=== PATIENT | female | born 1955 | race Caucasian/White ===

== ENCOUNTER 2018-02-18 10:09 | Emergency (ER) | payer OTHER ==
[~2018-02-18] VITALS: Ht 157.5 cm; Wt 111.2 kg
[~2018-02-18 10:09] MED LIST: ADVAIR 250/501 DISK IH; ADVAIR 500/501 DISK IH; ALLEGRA60 MG PO; ALPRAZOLAM0.5 MG PO; AMLODIPINE BESYL5 MG PO; ATENOLOL50 MG PO; AZELASTINE HCL6 ML BOTH EYES; AZELASTINE HCL6 ML LEFT EYE; BENTYL10 MG PO; CHLORDIAZEPOXI1 EACH PO; CYANOCOBAL1000 MCG/2 IM; DICYCLOMINE HCL10 MG PO; DRISDOL50000 UNIT PO; ERGOCALCIF50000 UNIT PO; FERROUS SULFAT325 MG PO; FLONASE16 G1 BOTH NARES; LASIX40 MG PO; LEVOTHYROXINE50 MCG PO; LIBRAX, CLI1 CAPSULE PO; MECLIZINE HCL25 MG PO; METRONIDAZOLE500 MG PO; MONTELUKAST SOD10 MG PO; NORCO 5/3251 TABLET PO; PHENADOZ25 MG PR; PREDNISONE2.5 MG PO; PROMETHAZINE HC25 M1 PO; PROVENTIL,2.5 MG/3 M IH; PROVENTIL2.5 MG/3 M IH; SIMVASTATIN20 MG PO; STELARA45 MG/0.1 SC; TIZANIDINE HCL4 M1 PO; TYLENOL WITH C1 EACH PO; VENLAFAXINE HCL75 M3 PO; VENTOLIN HFA18 GM IH; XARELTO15 MG PO; ZEGERID40 MG PO; ZOFRAN4 MG PO
[2018-02-18 10:38] LABS: BASOPHIL (%) 0.6 % (0-1); BASOPHIL COUNT 0.1 K/uL (0-0.1); EOSINOPHIL (%) 2.3 % (0-5); EOSINOPHIL COUNT 0.4 K/uL (0-0.3); HEMATOCRIT 41.2 % (36.0-46.0); IMMATURE GRANULOCYTE (%) 0.8 % (0.0-0.7); LYMPHOCYTE COUNT 4.8 K/uL (1.0-2.8); MCH 27.9 PG (29.0-34.0); MCHC 31.6 G/DL (30.0-36.0); MCV 88.4 FL (83-99); MONOCYTE (%) 7.3 % (3-12); MONOCYTE COUNT 1.2 K/uL (0-0.8); NEUTROPHIL COUNT 10.4 K/uL (1.8-6.4); PLATELET COUNT 406 K/uL (156-360); RBC DIS.WIDTH-CV 13.6 % (11.8-14.6); RBC DIS.WIDTH-SD 43.8 % (39-53); RED BLOOD COUNT 4.66 M/uL (3.80-5.20)
[2018-02-18 10:44] LABS: APPEARANCE SL.HAZY ((CLEAR)); BILIRUBIN NEGATIVE; BLOOD MODERATE; COLOR YELLOW ((YELLOW)); GLUCOSE (STRIP) NEGATIVE; KETONES NEGATIVE; LEUKOCYTES SMALL; NITRITE NEGATIVE; PROTEIN (STRIP) 30; SPECIFIC GRAVITY 1.026 (1.000-1.030)
[2018-02-18 10:47] LABS: CHLORIDE 105 mEq/L (99-109); POTASSIUM 3.5 mEq/L (3.7-5.4); SODIUM 144 mEq/L (136-147)
[2018-02-18 10:48] LABS: GLUCOSE 100 mg/dL (70-99)
[2018-02-18 10:52] LABS: CREATININE 1.1 mg/dL (0.6-1.3); GFR ESTIMATE (CALCULATED) 54 mL/min/
[2018-02-18 10:52] LABS: BACTERIA RARE /HPF; EPITHELIAL CELLS RARE /HPF; HYALINE CASTS 0-5 /LPF; MUCUS TRACE /LPF; RED BLOOD CELLS 0-5 /HPF (0-5); WHITE BLOOD CELLS 0-5 /HPF (0-5)
[2018-02-18 10:53] LABS: UREA NITROGEN (BUN) 21 mg/dL (9-23)
[2018-02-18] MEDS ORDERED: BENTYL20 MG PO (12:38)
[2018-02-18] MEDS ORDERED: FLAGYL500 MG PO (12:38)
[2018-02-18] MEDS ORDERED: CIPRO500 MG PO (12:38)
[2018-02-18 12:57] VITALS: BP 133/71
[2018-02-19] MEDS ORDERED: ADVAIR 500/501 DISK IH (12:24)
[2018-02-19] MEDS ORDERED: ACETAMINOPHEN-1 EAC2 PO (12:25)
[2018-02-19] MEDS ORDERED: ATENOLOL50 MG PO (12:26)
[2018-02-19] MEDS ORDERED: XARELTO20 MG PO (12:27)
[2018-02-19] MEDS ORDERED: LEVOTHYROXINE50 MCG PO (12:27)
[2018-02-19] MEDS ORDERED: CHLORDIAZEPOXI1 EACH PO (12:28)
[2018-02-19] MEDS ORDERED: EFFEXOR XR75 MG PO (12:29)
[2018-02-19] MEDS ORDERED: MONTELUKAST SOD10 MG PO (12:30)
[2018-02-19] MEDS ORDERED: PREDNISONE2.5 MG PO (12:30)
[2018-02-19] MEDS ORDERED: ERGOCALCIF50000 UNIT PO (12:31)
[2018-02-19] MEDS ORDERED: CYANOCOBAL1000 MCG/2 IM (12:36)
== END 2018-02-18 13:03 | disposition home or self-care (01) ==
LOC: EME 10:09
PROVIDERS: Emergency Medicine
DX: K52.9 Noninfective gastroenteritis and colitis, unspecified (principal); M19.90 Unspecified osteoarthritis, unspecified site; Z86.718 Personal history of other venous thrombosis and embolism; M79.7 Fibromyalgia; K58.9 Irritable bowel syndrome, unspecified; K21.9 Gastro-esophageal reflux disease without esophagitis; J45.909 Unspecified asthma, uncomplicated; F32.9 Major depressive disorder, single episode, unspecified; E78.5 Hyperlipidemia, unspecified; E03.9 Hypothyroidism, unspecified; I10 Essential (primary) hypertension; Z96.651 Presence of right artificial knee joint; Z91.041 Radiographic dye allergy status; Z88.6 Allergy status to analgesic agent; Z88.0 Allergy status to penicillin; Z88.5 Allergy status to narcotic agent
CPT/HCPCS: 74177; 80048; 81003; 85025; 99281; 99284; J1200; J2405; J3010

== ENCOUNTER 2018-02-18 17:45 | Inpatient (IN) | payer OTHER ==
[~2018-02-18] VITALS: Ht 157.5 cm; Wt 109.2 kg
[~2018-02-18 17:45] MED LIST changes: +BENTYL20 MG PO; +CIPRO500 MG PO; +FLAGYL500 MG PO
[2018-02-18 19:02] LABS: HEMATOCRIT 40.6 % (36.0-46.0); HEMOGLOBIN 12.9 G/DL (11.9-15.5); MCH 27.6 PG (29.0-34.0); MCHC 31.8 G/DL (30.0-36.0); MCV 86.8 FL (83-99); PLATELET COUNT 386 K/uL (156-360); RBC DIS.WIDTH-CV 13.7 % (11.8-14.6); RED BLOOD COUNT 4.68 M/uL (3.80-5.20); WHITE BLOOD COUNT 21.9 K/uL (4.1-10.2)
[2018-02-18 19:18] LABS: ALBUMIN 4.2 g/dL (3.2-4.8)
[2018-02-18 19:19] LABS: CHLORIDE 106 mEq/L (99-109); POTASSIUM 3.9 mEq/L (3.7-5.4); SODIUM 144 mEq/L (136-147)
[2018-02-18 19:21] LABS: GLUCOSE 122 mg/dL (70-99); TOTAL PROTEIN 7.4 g/dL (6.4-8.3)
[2018-02-18 19:23] LABS: TOTAL BILIRUBIN 0.2 mg/dL (0.0-1.0)
[2018-02-18 19:24] LABS: ALKALINE PHOSPHATASE 120 IU/L (3-129)
[2018-02-18 19:25] LABS: GFR ESTIMATE (CALCULATED) > 59 mL/min/
[2018-02-18 19:26] LABS: AST (GOT) 17 IU/L (2-34); UREA NITROGEN (BUN) 18 mg/dL (9-23)
[2018-02-18 19:27] LABS: ALT (GPT) 24 IU/L (3-49)
[2018-02-19 00:01] LABS: HEMATOCRIT 40.5 % (36.0-46.0); HEMOGLOBIN 12.7 G/DL (11.9-15.5); MCH 27.5 PG (29.0-34.0); MCHC 31.4 G/DL (30.0-36.0); MCV 87.9 FL (83-99); PLATELET COUNT 399 K/uL (156-360); RBC DIS.WIDTH-CV 13.8 % (11.8-14.6); RBC DIS.WIDTH-SD 44.2 % (39-53); RED BLOOD COUNT 4.61 M/uL (3.80-5.20); WHITE BLOOD COUNT 21.4 K/uL (4.1-10.2)
[2018-02-19 02:30] VITALS: BP 169/82
[2018-02-19 06:08] LABS: HEMATOCRIT 39.2 % (36.0-46.0); HEMOGLOBIN 11.9 G/DL (11.9-15.5); MCH 26.6 PG (29.0-34.0); MCHC 30.4 G/DL (30.0-36.0); MCV 87.5 FL (83-99); PLATELET COUNT 362 K/uL (156-360); RBC DIS.WIDTH-CV 13.9 % (11.8-14.6); RBC DIS.WIDTH-SD 44.2 % (39-53); RED BLOOD COUNT 4.48 M/uL (3.80-5.20)
[2018-02-19 06:14] LABS: ALBUMIN 3.6 G/DL (3.2-4.8); ALKALINE PHOSPHATASE 94 IU/L (3-129); ALT (GPT) 18 IU/L (3-49); AST (GOT) 15 IU/L (2-34); CHLORIDE 105 MEQ/L (99-109); GFR ESTIMATE (CALCULATED) > 59 mL/min/; GLUCOSE 109 mg/dL (70-99); SODIUM 140 MEQ/L (136-147); TOTAL BILIRUBIN 0.4 MG/DL (0.0-1.0); TOTAL PROTEIN 6.3 G/DL (6.4-8.3); UREA NITROGEN (BUN) 13 mg/dL (9-23)
[2018-02-19 07:15] VITALS: BP 142/66
[2018-02-19 10:55] VITALS: BP 141/67
[2018-02-19 11:18] LABS: HEMATOCRIT 36.9 % (36.0-46.0); HEMOGLOBIN 11.6 G/DL (11.9-15.5); MCH 27.7 PG (29.0-34.0); MCHC 31.4 G/DL (30.0-36.0); MCV 88.1 FL (83-99); PLATELET COUNT 333 K/uL (156-360); RBC DIS.WIDTH-CV 14.1 % (11.8-14.6); RBC DIS.WIDTH-SD 44.9 % (39-53); RED BLOOD COUNT 4.19 M/uL (3.80-5.20); WHITE BLOOD COUNT 15.3 K/uL (4.1-10.2)
[2018-02-19] MEDS ORDERED: ADVAIR 500/501 DISK IH (12:24)
[2018-02-19] MEDS ORDERED: ACETAMINOPHEN-1 EAC2 PO (12:25)
[2018-02-19] MEDS ORDERED: ATENOLOL50 MG PO (12:26)
[2018-02-19] MEDS ORDERED: XARELTO20 MG PO (12:27)
[2018-02-19] MEDS ORDERED: LEVOTHYROXINE50 MCG PO (12:27)
[2018-02-19] MEDS ORDERED: CHLORDIAZEPOXI1 EACH PO (12:28)
[2018-02-19] MEDS ORDERED: EFFEXOR XR75 MG PO (12:29)
[2018-02-19] MEDS ORDERED: MONTELUKAST SOD10 MG PO (12:30)
[2018-02-19] MEDS ORDERED: PREDNISONE2.5 MG PO (12:30)
[2018-02-19] MEDS ORDERED: ERGOCALCIF50000 UNIT PO (12:31)
[2018-02-19] MEDS ORDERED: CYANOCOBAL1000 MCG/2 IM (12:36)
[2018-02-19 15:30] VITALS: BP 129/65
[2018-02-19 15:35] LABS: INTER. NORMALIZED RATIO 1.3
[2018-02-19 15:38] LABS: PTT 25.8 SEC (25-37)
[2018-02-19 19:26] VITALS: BP 164/83
[2018-02-19 22:06] LABS: HEMATOCRIT 39.6 % (36.0-46.0); HEMOGLOBIN 12.1 G/DL (11.9-15.5); MCV 88.6 FL (83-99)
[2018-02-19 23:33] VITALS: BP 163/74
[2018-02-20 03:47] VITALS: BP 153/70
[2018-02-20 06:12] LABS: HEMATOCRIT 37.8 % (36.0-46.0); HEMOGLOBIN 11.6 G/DL (11.9-15.5); MCH 26.9 PG (29.0-34.0); MCHC 30.7 G/DL (30.0-36.0); MCV 87.5 FL (83-99); PLATELET COUNT 341 K/uL (156-360); RBC DIS.WIDTH-CV 13.7 % (11.8-14.6); RED BLOOD COUNT 4.32 M/uL (3.80-5.20); WHITE BLOOD COUNT 14.5 K/uL (4.1-10.2)
[2018-02-20 08:09] VITALS: BP 143/64
[2018-02-20] MEDS ORDERED: TIZANIDINE HCL2 MG PO (10:57)
[2018-02-20] MEDS ORDERED: DICLOFENAC SODI75 MG PO (10:58)
[2018-02-20] MEDS ORDERED: DOXEPIN HCL10 MG PO (11:01)
[2018-02-20] MEDS ORDERED: FLONASE16 G1 BOTH NARES (11:04)
[2018-02-20] MEDS ORDERED: VENLAFAXINE HCL75 M3 PO (11:05)
[2018-02-20] MEDS ORDERED: AZELASTINE HCL6 ML BOTH EYES (11:07)
[2018-02-20 12:00] VITALS: BP 181/80
[2018-02-20 15:25] VITALS: BP 134/59
[2018-02-20 19:36] LABS: INTER. NORMALIZED RATIO 1.3
[2018-02-20 19:39] LABS: PTT 66.9 SEC (25-37)
[2018-02-20 19:44] VITALS: BP 145/61
[2018-02-20 20:03] LABS: HEMATOCRIT 37.3 % (36.0-46.0); HEMOGLOBIN 11.7 G/DL (11.9-15.5); MCV 88.2 FL (83-99)
[2018-02-21 00:52] VITALS: BP 140/76
[2018-02-21 04:38] VITALS: BP 127/60
[2018-02-21 05:22] LABS: C DIFF TOXIN NEGATIVE (NEGATIVE)
[2018-02-21 06:15] LABS: HEMATOCRIT 34.6 % (36.0-46.0); HEMOGLOBIN 10.7 G/DL (11.9-15.5); MCH 27.5 PG (29.0-34.0); MCHC 30.9 G/DL (30.0-36.0); MCV 88.9 FL (83-99); PLATELET COUNT 318 K/uL (156-360); RBC DIS.WIDTH-SD 45.2 % (39-53); RED BLOOD COUNT 3.89 M/uL (3.80-5.20); WHITE BLOOD COUNT 13.8 K/uL (4.1-10.2)
[2018-02-21 06:38] LABS: CHLORIDE 107 MEQ/L (99-109); GFR ESTIMATE (CALCULATED) > 59 mL/min/; GLUCOSE 93 mg/dL (70-99); POTASSIUM 3.8 MEQ/L (3.7-5.4); SODIUM 141 MEQ/L (136-147); UREA NITROGEN (BUN) 10 mg/dL (9-23)
[2018-02-21 12:09] VITALS: BP 134/56
[2018-02-21 17:03] VITALS: BP 144/60
[2018-02-21 19:50] VITALS: BP 127/60
[2018-02-21 20:04] LABS: HEMATOCRIT 34.5 % (36.0-46.0); HEMOGLOBIN 10.7 G/DL (11.9-15.5); MCV 89.1 FL (83-99)
[2018-02-22 00:07] VITALS: BP 117/56
[2018-02-22 06:50] LABS: HEMATOCRIT 33.5 % (36.0-46.0); HEMOGLOBIN 10.1 G/DL (11.9-15.5); MCH 26.9 PG (29.0-34.0); MCHC 30.1 G/DL (30.0-36.0); MCV 89.3 FL (83-99); PLATELET COUNT 297 K/uL (156-360); RBC DIS.WIDTH-CV 14.1 % (11.8-14.6); RBC DIS.WIDTH-SD 45.6 % (39-53); RED BLOOD COUNT 3.75 M/uL (3.80-5.20); WHITE BLOOD COUNT 9.8 K/uL (4.1-10.2)
[2018-02-22 06:51] VITALS: BP 146/65
[2018-02-22 07:26] LABS: CHLORIDE 111 MEQ/L (99-109); GFR ESTIMATE (CALCULATED) > 59 mL/min/; GLUCOSE 91 mg/dL (70-99); POTASSIUM 3.8 MEQ/L (3.7-5.4); SODIUM 145 MEQ/L (136-147); UREA NITROGEN (BUN) 7 mg/dL (9-23)
[2018-02-22] MEDS ORDERED: FAMOTIDINE20 MG PO (08:23)
[2018-02-22] MEDS ORDERED: CIPRO500 MG PO (08:25)
[2018-02-22] MEDS ORDERED: FLAGYL500 MG PO (08:25)
[2018-02-22] MEDS ORDERED: TRAMADOL HCL50 MG PO (10:04)
== END 2018-02-22 12:25 | disposition home or self-care (01) | DRG 394 ==
LOC: EME 17:45 → 2EAST 23:40 → EDOF 23:40 → ENRESERV 23:41 → 2EAST 02-19 02:15
PROVIDERS: Internal Medicine; Nurse Practitioner Acute Care; Physician Assistant
PROC: 0DBM8ZX Excision of Descending Colon, Via Natural or Artificial Opening Endoscopic, Diagnostic (ICD-10-PCS; principal; 2018-02-18)
DX: K55.9 Vascular disorder of intestine, unspecified (principal); D68.51 Activated protein C resistance; K58.0 Irritable bowel syndrome with diarrhea; I10 Essential (primary) hypertension; E78.5 Hyperlipidemia, unspecified; E03.9 Hypothyroidism, unspecified; L40.50 Arthropathic psoriasis, unspecified; J45.909 Unspecified asthma, uncomplicated; E66.9 Obesity, unspecified; Z68.41 Body mass index [BMI] 40.0-44.9, adult; K21.9 Gastro-esophageal reflux disease without esophagitis; M79.7 Fibromyalgia; M19.90 Unspecified osteoarthritis, unspecified site; F32.9 Major depressive disorder, single episode, unspecified; Z86.711 Personal history of pulmonary embolism; Z86.718 Personal history of other venous thrombosis and embolism; Z79.01 Long term (current) use of anticoagulants; Z96.651 Presence of right artificial knee joint; Z90.710 Acquired absence of both cervix and uterus; Z80.3 Family history of malignant neoplasm of breast; Z80.42 Family history of malignant neoplasm of prostate
CPT/HCPCS: 74177; 80048; 80053; 81003; 83605; 85014; 85018; 85025; 85027; 85610; 85730; 86850; 86900; 86901; 87177; 87329; 87493; 87506; 88305; 94640; 94640 76; 99281; 99284; 99285; J0744; J1200; J2250; J2405; J2765; J3010; J7030; J7050; J7512; S0030

== ENCOUNTER 2018-05-04 07:35 | Inpatient (IN) | payer OTHER ==
[~2018-05-04] VITALS: Ht 154.9 cm; Wt 110.2 kg
[~2018-05-04 07:35] MED LIST changes: +ACETAMINOPHEN-1 EAC2 PO; +DICLOFENAC SODI75 MG PO; +DOXEPIN HCL10 MG PO; +EFFEXOR XR75 MG PO; +FAMOTIDINE20 MG PO; +TIZANIDINE HCL2 MG PO; +TRAMADOL HCL50 MG PO; +XARELTO20 MG PO
[2018-05-04 08:08] LABS: BASOPHIL (%) 0.7 % (0-1); BASOPHIL COUNT 0.1 K/uL (0-0.1); EOSINOPHIL (%) 2.1 % (0-5); EOSINOPHIL COUNT 0.3 K/uL (0-0.3); HEMATOCRIT 38.4 % (36.0-46.0); HEMOGLOBIN 11.9 G/DL (11.9-15.5); IMMATURE GRANULOCYTE (%) 1.3 % (0.0-0.7); LYMPHOCYTE (%) 29.6 % (15-42); MCV 87.3 FL (83-99); MONOCYTE (%) 6.9 % (3-12); MONOCYTE COUNT 0.9 K/uL (0-0.8); NEUTROPHIL (%) 59.4 % (45-76); NEUTROPHIL COUNT 8.1 K/uL (1.8-6.4); PLATELET COUNT 366 K/uL (156-360); RBC DIS.WIDTH-CV 13.6 % (11.8-14.6); RBC DIS.WIDTH-SD 43.5 % (39-53); WHITE BLOOD COUNT 13.6 K/uL (4.1-10.2)
[2018-05-04 08:22] LABS: ALBUMIN 3.9 g/dL (3.2-4.8); CHLORIDE 105 mEq/L (99-109); POTASSIUM 3.8 mEq/L (3.7-5.4); SODIUM 144 mEq/L (136-147)
[2018-05-04 08:24] LABS: GLUCOSE 103 mg/dL (70-99); TOTAL PROTEIN 7.1 g/dL (6.4-8.3)
[2018-05-04 08:26] LABS: TOTAL BILIRUBIN 0.3 mg/dL (0.0-1.0)
[2018-05-04 08:28] LABS: ALKALINE PHOSPHATASE 125 IU/L (3-129); GFR ESTIMATE (CALCULATED) > 59 mL/min/
[2018-05-04 08:29] LABS: UREA NITROGEN (BUN) 24 mg/dL (9-23)
[2018-05-04 08:30] LABS: AST (GOT) 16 IU/L (2-34)
[2018-05-04 08:31] LABS: ALT (GPT) 30 IU/L (3-49); LIPASE 12 U/L (1.0-51.0)
[2018-05-04 11:00] LABS: APPEARANCE CLEAR ((CLEAR)); BILIRUBIN NEGATIVE; BLOOD NEGATIVE; COLOR YELLOW ((YELLOW)); GLUCOSE (STRIP) NEGATIVE; KETONES NEGATIVE; LEUKOCYTES NEGATIVE; NITRITE NEGATIVE; PROTEIN (STRIP) NEGATIVE; UCUL ADDED? NO; UROBILINOGEN 0.2 MG/DL (0.2-1.0)
[2018-05-04] MEDS ORDERED: NORVASC2.5 MG PO (11:12)
[2018-05-04 13:50] VITALS: BP 164/70
[2018-05-04 19:50] VITALS: BP 154/67
[2018-05-05 00:03] VITALS: BP 127/65
[2018-05-05 03:02] LABS: STOOL OCCULT BLD 1ST SPECIMEN POSITIVE
[2018-05-05 03:23] LABS: C DIFF TOXIN NEGATIVE (NEGATIVE)
[2018-05-05 03:53] VITALS: BP 141/63
[2018-05-05 06:45] LABS: HEMATOCRIT 39.1 % (36.0-46.0); HEMOGLOBIN 12.2 G/DL (11.9-15.5); MCH 27.2 PG (29.0-34.0); MCHC 31.2 G/DL (30.0-36.0); MCV 87.1 FL (83-99); PLATELET COUNT 433 K/uL (156-360); RBC DIS.WIDTH-CV 13.8 % (11.8-14.6); RBC DIS.WIDTH-SD 43.3 % (39-53); RED BLOOD COUNT 4.49 M/uL (3.80-5.20); WHITE BLOOD COUNT 27.5 K/uL (4.1-10.2)
[2018-05-05 07:11] LABS: ALBUMIN 3.8 G/DL (3.2-4.8); CHLORIDE 107 MEQ/L (99-109); GFR ESTIMATE (CALCULATED) > 59 mL/min/; GLUCOSE 92 mg/dL (70-99); PHOSPHORUS 3.9 mg/dL (2.5-4.9); POTASSIUM 4.5 MEQ/L (3.7-5.4); SODIUM 142 MEQ/L (136-147); UREA NITROGEN (BUN) 14 mg/dL (9-23)
[2018-05-05 08:14] VITALS: BP 186/79
[2018-05-05 11:57] VITALS: BP 128/62
[2018-05-05 20:21] VITALS: BP 129/81
[2018-05-05 23:04] VITALS: BP 119/59
[2018-05-06 04:59] VITALS: BP 116/57
[2018-05-06 05:49] LABS: BASOPHIL (%) 0.7 % (0-1); BASOPHIL COUNT 0.1 K/uL (0-0.1); EOSINOPHIL (%) 0.6 % (0-5); EOSINOPHIL COUNT 0.1 K/uL (0-0.3); HEMOGLOBIN 11.2 G/DL (11.9-15.5); IMMATURE GRANULOCYTE (%) 0.7 % (0.0-0.7); LYMPHOCYTE COUNT 3.3 K/uL (1.0-2.8); MCH 26.6 PG (29.0-34.0); MCHC 29.5 G/DL (30.0-36.0); MCV 90.3 FL (83-99); MONOCYTE (%) 7.5 % (3-12); MONOCYTE COUNT 1.4 K/uL (0-0.8); NEUTROPHIL (%) 73.5 % (45-76); NEUTROPHIL COUNT 14.2 K/uL (1.8-6.4); PLATELET COUNT 311 K/uL (156-360); RBC DIS.WIDTH-CV 13.9 % (11.8-14.6); RBC DIS.WIDTH-SD 45.7 % (39-53); RED BLOOD COUNT 4.21 M/uL (3.80-5.20); WHITE BLOOD COUNT 19.3 K/uL (4.1-10.2)
[2018-05-06 06:18] LABS: ALBUMIN 3.2 G/DL (3.2-4.8); CHLORIDE 109 MEQ/L (99-109); CREATININE 1.1 MG/DL (0.6-1.3); GFR ESTIMATE (CALCULATED) 54 mL/min/; GLUCOSE 89 mg/dL (70-99); POTASSIUM 3.8 MEQ/L (3.7-5.4); SODIUM 142 MEQ/L (136-147); UREA NITROGEN (BUN) 12 mg/dL (9-23)
[2018-05-06 07:42] VITALS: BP 136/59
[2018-05-06 10:16] LABS: STOOL OCCULT BLD 1ST SPECIMEN POSITIVE
[2018-05-06 16:31] VITALS: BP 109/53
[2018-05-06 23:58] VITALS: BP 160/81
[2018-05-07 06:10] LABS: HEMATOCRIT 33.9 % (36.0-46.0); HEMOGLOBIN 10.3 G/DL (11.9-15.5); MCH 26.9 PG (29.0-34.0); MCHC 30.4 G/DL (30.0-36.0); MCV 88.5 FL (83-99); PLATELET COUNT 299 K/uL (156-360); RBC DIS.WIDTH-CV 13.8 % (11.8-14.6); RBC DIS.WIDTH-SD 44.6 % (39-53); RED BLOOD COUNT 3.83 M/uL (3.80-5.20); WHITE BLOOD COUNT 17.9 K/uL (4.1-10.2)
[2018-05-07 06:39] LABS: CHLORIDE 109 MEQ/L (99-109); CREATININE 1.1 MG/DL (0.6-1.3); GFR ESTIMATE (CALCULATED) 54 mL/min/; GLUCOSE 101 mg/dL (70-99); POTASSIUM 4.1 MEQ/L (3.7-5.4); SODIUM 144 MEQ/L (136-147); UREA NITROGEN (BUN) 10 mg/dL (9-23)
[2018-05-07 08:54] VITALS: BP 160/72
[2018-05-07] MEDS ORDERED: FLAGYL500 MG PO (10:17)
[2018-05-07] MEDS ORDERED: CIPRO500 MG PO (10:17)
[2018-05-07] MEDS ORDERED: ZOFRAN4 MG PO (10:17)
[2018-05-07] MEDS ORDERED: TRAMADOL HCL50 MG PO (10:17)
== END 2018-05-07 12:58 | disposition home or self-care (01) | DRG 394 ==
LOC: EME 07:35 → EDOF 11:11 → 2EAST 11:11 → ENRESERV 11:12 → 2EAST 13:40
PROVIDERS: Emergency Medicine; Hospitalist; Internal Medicine; Internal Medicine Gastroenterology
DX: K55.9 Vascular disorder of intestine, unspecified (principal); K51.90 Ulcerative colitis, unspecified, without complications; I10 Essential (primary) hypertension; E66.9 Obesity, unspecified; E78.5 Hyperlipidemia, unspecified; L40.50 Arthropathic psoriasis, unspecified; E03.9 Hypothyroidism, unspecified; J45.909 Unspecified asthma, uncomplicated; D68.51 Activated protein C resistance; Z68.42 Body mass index [BMI] 45.0-49.9, adult; Z88.6 Allergy status to analgesic agent; Z88.0 Allergy status to penicillin; Z88.8 Allergy status to other drugs, medicaments and biological substances; Z79.899 Other long term (current) drug therapy; Z79.01 Long term (current) use of anticoagulants; Z86.718 Personal history of other venous thrombosis and embolism; Z88.5 Allergy status to narcotic agent; Z90.710 Acquired absence of both cervix and uterus; Z96.651 Presence of right artificial knee joint; Z86.711 Personal history of pulmonary embolism
CPT/HCPCS: 74174; 80048; 80053; 80069; 81003; 82272; 83605; 83630; 83690; 85025; 85027; 87425-90; 87493; 87506; 94640; 94640 76; 99281; 99285; C9113; J0744; J1200; J2405; J2765; J2930; J3010; J7030; J7512; S0030